=== PATIENT | male | born 1955 | race Caucasian/White ===

== ENCOUNTER 2018-12-26 14:59 | Emergency (ER) | payer SELFPAY ==
[~2018-12-26] VITALS: Ht 170.2 cm; Wt 90.0 kg
[2018-12-26 16:15] VITALS: BP 145/90
== END 2018-12-26 16:20 | disposition home or self-care (01) ==
LOC: ER 15:36
DX: F41.1 Generalized anxiety disorder (principal); F43.0 Acute stress reaction; R03.0 Elevated blood-pressure reading, without diagnosis of hypertension
CPT/HCPCS: 71045; 93005; 99283